=== PATIENT | male | born 1990 | race Caucasian/White ===

== ENCOUNTER → 2019-05-24 | Outpatient (CLI) | payer OTHER ==
--- NOTE | 2019-05-24 08:59 | ER RDC ASSESSMENT REPORT ---
Intake - In the Last 14 days Have you traveled outside [place]?: No Have you been in close contact with someone CONFIRMED: No Worked in Healthcare?: No - Symptoms Subjective Fever([place] feverish): Yes Chills: No Muscule Aches: Yes Runny Nose: Yes Sore Throat: Yes Cough (New or worsening chronic cough): Yes Shortness of breath: Yes Nausea or Vomiting: No Headache: Yes Abdominal Pain: No Diarrhea(3 or more loose stools in last 24 hours): Yes - Do you have any of the following Chronic lung disease: Asthma or emphysema or COPD: Yes Chronic Lung Disease Comment: History of asthma in childhood Cystic Fibrosis: No Diabetes: No High Blood Pressure: Yes Cardiovascular Disease: Yes Chronic Kidney Disease: No Chronic Liver Disease: No Chronic blood disorder like Sickle Cell Disease: No Weak immune system due to disease or medication: No Neurologic condition that limits movement: No Developmental delay - Moderate to Severe: No Recent (within past 2 weeks) or current : No Obesity Comment: Height 6 foot 0 inches weight 268 pounds - Objective Temperature: 98.3 F Pulse Rate: 86 Respiratory Rate: 20 Blood Pressure: 136/61 O2 Sat by Pulse Oximetry: 95 Objective: Given above, testing performed: If Testing Performed: Test Specimen Type Sent to General - General Information source: Patient Notes: Patient here for Covid testing. Patient reports having respiratory symptoms since about May 01 with runny nose, cough productive at times and aches. Started to have shortness of breath about a week ago and was hard to talk felt weak. States improving now and not having the shortness of breath. Still has an occasional cough. Past Medical History - General Information source: Patient - Social History Smoking Status: Never Smoker Physical Exam - General General appearance: Appears well, Alert In distress: None Notes: PHYSICAL EXAMINATION: GENERAL: Well-appearing and in no acute distress. HEAD: Atraumatic, normocephalic. EYES: sclera anicteric, conjunctiva are normal. ENT: nares patent. Moist mucous membranes. NECK: Normal range of motion, supple without lymphadenopathy LUNGS: CTAB and equal. No wheezes rales or rhonchi. resp even and unlabored lung sounds clear. HEART: Regular rate and rhythm without murmurs ABDOMEN: Soft, nontender, normal bowel sounds, no guarding. EXTREMITIES: No cyanosis. NEUROLOGICAL: Normal speech. PSYCH: Normal mood, normal affect. SKIN: Warm, Dry, normal turgor Diagnostic Results Laboratory Results: Patient informed of negative rapid strep and negative rapid flu results. Pending strep culture. Pending COVID Testing. Patient provided instructions on COVID to include: As a person under investigation for Covid 19, the [facility], division of public health advises you to adhere to the following guidance until your test results are reported to you. If your test result is positive, you will receive additional information from your provider and your local health department at that time. Remain at home until you are cleared by the health provider or public health authorities. Keep a log of visitors to your home, notify any visitors to your home of your isolation status. If you plan to move to a new address or leave the county, notify the local health department in your County. Call your doctor or seek care if you have an urgent medical need. Before seeking medical care, call ahead to get instructions from the provider before arriving at the medical office clinic or hospital. Notify them that you are being tested for the virus that causes Covid 19 so that arrangements can be made, as necessary, to prevent transmission to others in the healthcare setting. Next, notify the local health department in your county. If a medical emergency arises and you need to call 911, inform the first responders that you are being tested for the virus that causes Covid 19. Next, notify the local health department in your [facility]. Patient Education/Counseling Counseling/Education: Patient presents with upper respiratory symptoms worrisome for possible Covid 19. Patient does not have emergency worring symptoms such as difficulty breathing, shortness of breath, chest pain, pressure, confusion or cyanosis. Patient appears suitable for discharge. Patient's vital signs are stable and patient is nontoxic in appearance. Good return precautions have been discussed with patient, patient verbalized understanding and is agreeable with discharge plan of care at this time. Patient instructed to follow up with PCP in in [facility]. Contact PCP for persistent or worsening symptoms to ED as needed. RDC Discharge - Discharge Clinical Impression: COVID -19 SCREENING Condition: Stable Disposition: Home; Selfcare
[2019-05-24 09:17] VITALS: BP 136/61
[2019-05-24 09:52] LABS: A TYPE INFLUENZA AG NEGATIVE (NEGATIVE); B INFLUENZA AG NEGATIVE (NEGATIVE)
== END ==
LOC: RDC 08:13
PROVIDERS: ATTEND Nurse Practitioner Family
DX: Z20.828 Contact with and (suspected) exposure to other viral communicable diseases (principal); R05 Cough; R50.9 Fever, unspecified; R06.02 Shortness of breath; R51 Headache; R19.7 Diarrhea, unspecified; R09.89 Other specified symptoms and signs involving the circulatory and respiratory systems; M79.10 Myalgia, unspecified site; I10 Essential (primary) hypertension
CPT/HCPCS: 87070; 87635; 87804; 87880; 99201

== ENCOUNTER 2019-12-07 14:46 | Emergency (ER) | payer OTHER ==
[2019-12-07] MEDS ORDERED: EPINEPHRINE INJ/PF 1 MG/1 ML AMPULE SUBCUT ONE (14:58)
[2019-12-07] MEDS ORDERED: DEXAMETHASONE SOD PHOS INJ 10 MG/1 ML VIAL IV ONE (14:59)
[2019-12-07] MEDS ORDERED: FAMOTIDINE INJ/PF 20 MG/2 ML SDV IV ONE (14:59)
--- NOTE | 2019-12-07 15:27 | ER Document Report ---
ED General - Related Data Home Medications: Lisinopril - General Chief Complaint: Allergic Reaction Stated Complaint: ALLERGIC REACTION Time Seen by Provider: 12/07/19 14:58 Primary Care Provider: ROBERT BUSCH [NO LOCAL MD] - Follow up as needed - HPI Notes: Patient is a 29-year-old male who presents to the emergency department for evaluation of chest tightness, lip swelling, itching, after being bitten by multiple fire ants. He states it happened approximately an hour prior to arrival. He has been bitten in the past, never had this severe of a reaction. He denies any pain at this time beyond the tightness in his chest. He has had some mild difficulty breathing. He denies any swelling of his tongue, difficulty speaking, swallowing, breathing. (BOBBY ESPINO) - Related Data Allergies/Adverse Reactions: fire ant Allergy (Verified 12/07/19 14:56) Anaphylaxis No Known Drug Allergies Allergy (Verified 12/07/19 14:48) Past Medical History - General Information source: Patient - Social History Smoking Status: Never Smoker Chew tobacco use (# tins/day): No Frequency of alcohol use: Rare Drug Abuse: None Family History: Reviewed & Not Pertinent Patient has homicidal ideation: No - Past Medical History Cardiac Medical History: Reports: Hx Hypertension Review of Systems - Review of Systems Constitutional: Weakness EENT: See HPI Cardiovascular: No symptoms reported Respiratory: See HPI Gastrointestinal: See HPI Genitourinary: No symptoms reported Musculoskeletal: No symptoms reported Skin: See HPI Neurological/Psychological: No symptoms reported -: Yes All other systems reviewed and negative Physical Exam - Vital signs Vitals: Temp Resp Pulse Ox 97.8 F 14 96 12/07/19 14:47 12/07/19 14:47 12/07/19 14:47 - Notes Notes: This is a 29-year-old male who appears his stated age, in a mild amount of distress. Vital signs reviewed, please refer to chart. Head is normocephalic, atraumatic. Pupils equal round, reactive to light. Lower lip is mildly edematous. Tongue is without edema. Posterior pharynx is without erythema or edema. Neck is supple without meningismus. Heart is regular rate and rhythm. Lungs are clear to auscultation bilaterally. Abdomen is soft, nontender, norm oactive bowel sounds throughout. Extremities without cyanosis, clubbing. Posterior calves are nontender. Peripheral pulses are equal. Skin is warm and dry. He has urticaria scattered about the anterior chest wall, upper torso and the back. He also has lesions consistent with insect bites to bilateral ankles. Patient is awake, alert, neurological exam is nonfocal. (BOBBY ESPINO) Course - Re-evaluation Re-evalutation: 12/07/19 15:26 Patient presents to the emergency department for evaluation after being bitten by multiple fire ants. He has multisystem involvement, qualifying for anaphylaxis. He was medicated with epinephrine. The patient states that he wishes to not go home on steroids, I will ahead and give him a dose of Decadron here. He took Benadryl prior to arrival. He is given some Pepcid. We will continue to watch him on the monitor, he is currently stable. 12/07/19 16:08 On reevaluation patient's hives have nearly disappeared. He has minimal to no swelling of the lower lip, he again denies any difficulty breathing, swelling in his posterior pharynx. Patient will be observed for another hour here. Assuming he continues to show improvements, no signs of rebound, the patient will be discharged with an epinephrine pen and close follow-up. He is to return to the ED with worsening. (BOBBY ESPINO) 12/07/19 17:49 I received pt in turnover from Dr. Espino and he is seen and examined. Feels improved. Lungs are clear. Left lower leg some redness and sts from the ant bites. Oropharnx is clear and widely patent. He understands return precautions and the epi pen has been sent to the local pharmacy by Dr. Espino. (CARLOS PABON) - Vital Signs Vital signs: Temp Pulse Resp BP Pulse Ox 98.1 F 15 125/86 H 95 12/07/19 17:00 12/07/19 17:01 12/07/19 17:01 12/07/19 17:01 Discharge - Discharge Clinical Impression: Anaphylactic reaction Qualifiers: Encounter type: initial encounter Qualified Code(s): T78.2XXA - Anaphylactic shock, unspecified, initial encounter Condition: Stable Disposition: HOME, SELF-CARE Instructions: Anaphylaxis Kit (OM) Additional Instructions: If you were bitten by fire ants again, please use the epinephrine pen. If you develop hives, difficulty breathing, facial swelling, or any other new or concerning symptoms, please use the epinephrine pen and report immediately to the ER for further evaluation. Follow-up with your primary care provider next week. Take famotidine 20 mg twice a day for 7 days. Pepcid may be purchased at the local pharmacy or supermarket over the counter. Prescriptions: Epinephrine 0.3 mg IJ ONCE PRN #1 [id number].[email or web address] PRN Reason: Famotidine [Pepcid 20 mg Tablet] 20 mg PO BID #14 tablet Referrals: LOCALMD,NO [NO LOCAL MD] - Follow up as needed
[2019-12-07 17:59] VITALS: BP 121/78
== END 2019-12-07 18:00 | disposition home or self-care (01) ==
LOC: ER 14:46
DX: T78.2XXA Anaphylactic shock, unspecified, initial encounter (principal); T63.421A Toxic effect of venom of ants, accidental (unintentional), initial encounter; R07.89 Other chest pain; R53.1 Weakness; X58.XXXA Exposure to other specified factors, initial encounter; I10 Essential (primary) hypertension
CPT/HCPCS: 99284; 96372; 96374; 96375; J0171; S0028; J1100